=== PATIENT | female | born 1955 | race Caucasian/White ===

== ENCOUNTER → 2021-02-04 08:49 | Outpatient (CLI) | payer MEDICARE, SELFPAY ==
--- NOTE | 2021-02-04 08:55 | BD_ITS ---
STUDY: DUAL ENERGY X-RAY ABSORPTIOMETRY / DXA REASON FOR EXAM: Female, 66 years old. M810. Patient is postmenopausal. TECHNIQUE: Bone Mineral Density (BMD) measurements of lumbar spine and bilateral hips were obtained. COMPARISON: None. FINDINGS: Lumbar Spine (L1-L4): g/cm2 (1.009) / T-score (-0.4) / Z-score (1.5) Findings are suggestive of normal bone density with a low fracture risk. Left Femur Total: g/cm2 (0.928) / T-score (-0.1) / Z-score (1.2) Left Femoral Neck: g/cm2 (0.70) / T-score (-1.3) / Z-score (0.3) Right Femur Total: g/cm2 (0.889) / T-score (-0.4) / Z-score (0.9) Right Femoral Neck: g/cm2 (0.673) / T-score (-1.6) / Z-score (0.0) BD/Dexa Bone Density Study IMPRESSION: The patient is considered osteopenic as outlined below according to World Tomi Organization (WHO) criteria with a moderate fracture risk. Reference Information: The T-score is the number of standard deviations above or below the standard which is normal for young adults at their peak bone mineral density. The World Health Organization (WHO) interprets the T-scores as follows: Above -1 Normal bone density Between -1 and -2.5 Osteopenia Equal to / or below -2.5 Osteoporosis As a practical clinical guideline, osteopenia may be graded as follows: Mild -1 through -1.5 Moderate -1.6 through -2.0 Severe -2.1 through -2.4 The Z-score is the number of standard deviations above or below age-matched controls. A Z-score of less than -1.5 would be considered abnormal. References: 1. NIH Osteoporosis and Related Bone Diseases www osteo.org 2. International Society for Clinical Densitometry www iscd.org 3. National Osteoporosis Foundation www nof.org Electronically Signed: Brad Woods MD at 13:26 EDT , Service support ,
--- NOTE | 2021-02-04 09:21 | EKG12_ITS ---
Test Reason : ROUTINE Blood Pressure : / mmHG Vent. Rate : 076 BPM Atrial Rate : 076 BPM P-R Int : 162 ms QRS Dur : 080 ms QT Int : 370 ms P-R-T Axes : 065 057 071 degrees QTc Int : 416 ms Normal sinus rhythm Low voltage QRS Borderline ECG Confirmed by APOLINAR FIELDS, SARAH ([id number]), image editor MAGDALENA RODRIGUEZ ([id number]) on 02/05/2021 9:10:44 AM Referred By: [facility] Confirmed By:SARAH JIANG MD
== END ==
DX: M81.0 Age-related osteoporosis without current pathological fracture (principal); Z82.49 Family history of ischemic heart disease and other diseases of the circulatory system
CPT/HCPCS: 77080; 93005

== ENCOUNTER → 2021-03-12 12:20 | Outpatient (CLI) | payer MEDICARE, SELFPAY ==
[2021-03-12 12:52] LABS: Absolute Lymphocyte Count 1.89 X10^3/uL (0.83-4.51); Absolute Neutrophil Count 4.5 X10^3/uL (2.0-7.7); Basophil# 0.04 X10^3/uL; Basophil% 0.6 % (0-1); Eosinophil# 0.01 X10^3/uL; Eosinophils% 0.1 % (0-5); Hematocrit 42.8 % (37-47); Hemoglobin 13.8 g/dL (12.0-15.0); Lymphocyte # 1.89 X10^3/ul (0.83-4.51); Lymphocyte % 27.8 % (19-41); Mean Corp Hgb Conc 32.2 g/dL (32-36); Mean Corpuscular Hgb 29.6 pg (27.0-32.0); Mean Corpuscular Volume 91.8 fL (81-99); Mean Platelet Vol. 9.8 fl (6.2-12.0); Monocyte# 0.34 X10^3/uL; NRBC Flagged by Analyzer 0 % (0-5); Neutrophil # 4.45 X10^3/uL (2.7-7.7); Neutrophil % 65.6 % (47-70); Platelet Count 339 K/mm3 (150-450); RBC Distribution Width CV 12.9 % (11.6-14.6); RBC Distribution Width SD 42.6 fl (35.1-43.9); Red Blood Count 4.66 M/mm3 (4.2-5.4); White Blood Count 6.8 K/mm3 (4.4-11.0)
[2021-03-12 13:34] LABS: BNP,B-Type NATRIURETIC PEPTIDE 162.3 pg/mL (0-100)
[2021-03-12 13:43] LABS: ALB/GLOB Ratio 0.9 RATIO (0.9-2.4); AST(SGOT) 14 U/L (15-37); Alanine Aminotransfer ALT/SGPT 15 U/L (13-56); Albumin, Serum 3.6 g/dL (3.2-5.0); Alkaline Phosphatase 111 U/L (45-117); Anion Gap 7 (5-15); BUN 16 mg/dL (7-18); BUN/Creat Ratio 16.2 RATIO (10-20); Calcium,Total 9.5 mg/dL (8.5-10.1); Chloride 107 mmol/L (98-107); Creatinine, Serum 0.99 mg/dL (0.55-1.02); EST Glomerular Filtration Rate 60 mL/min (>60); Est Glom Filt Rate - Afr Amer 72 mL/min (>60); Globulin 4.1 g/dL (2.2-4.2); Glucose 110 mg/dL (74-106); Potassium 4.2 mmol/L (3.5-5.1); Protein, Total 7.7 g/dL (6.4-8.2); Sodium Level 139 mmol/L (136-145); T4 Free Direct 1.03 ng/dL (0.76-1.46); Thyroid Stim Hormone (TSH) 1.72 uIU/mL (0.358-3.74)
[2021-03-15 08:39] LABS: Vitamin D 1,25-Dihydroxy 49.9 pg/mL (19.9-79.3)
== END ==
DX: Z00.01 Encounter for general adult medical examination with abnormal findings (principal); R06.00 Dyspnea, unspecified; R60.0 Localized edema
CPT/HCPCS: 36415; 80053; 82652; 83880; 84439; 84443; 85025

== ENCOUNTER → 2021-04-17 09:44 | Outpatient (CLI) | payer MEDICARE, SELFPAY ==
--- NOTE | 2021-04-17 09:47 | ECHOD_ITS ---
Reason For Study: Palpitations Procedure This was a 2D Doppler, Color Flow transthoracic echocardiogram. The study was technically difficult. Exam performed in department. Left Ventricle Normal LV size. Left ventricular systolic function is normal. The estimated ejection fraction is 65 %. Diastolic function is indeterminate. No regional wall motion abnormalities noted. Right Ventricle Normal RV size. Normal systolic function. Atria Normal left atrium. Normal right atrium. No doppler evidence for ASD. Mitral Valve There is no mitral annular calcification. Mild focal mitral valve calcification of the anterior leaflet. Trivial mitral valve insufficiency. Tricuspid Valve Normal tricuspid valve. Trivial tricuspid valve insufficiency. Right ventricular systolic pressure estimated to be 26 mmHg. Aortic Valve Trisinus/trileaflet aortic valve. Mild focal aortic valve calcification. Pulmonic Valve The pulmonic valve is not well visualized. Trivial pulmonic valve insufficiency. Great Vessels Normal sized aortic root. Pericardium/Pleural No pericardial effusion. MMode/2D Measurements & Calculations LVIDd: 3.4 cm IVSd: 1.3 cm Ao root diam: 3.4 cm LVIDs: 2.0 cm LVPWd: 1.1 cm RVDd: 3.3 cm FS: 43.3 % LAV(MOD-bp): 27.8 ml LVAd ap4: 19.7 cm2 SV(MOD-sp4): 29.4 ml LAV(MOD-bp) Indexed: 14.4 ml/m2 LVLd ap4: 6.9 cm LAV(MOD-sp2): 21.1 ml EDV(MOD-sp4): 45.8 ml LAV(MOD-sp4): 34.9 ml EDV(sp4-el): 47.5 ml LVAs ap4: 10.3 cm2 LVLs ap4: 5.4 cm ESV(MOD-sp4): 16.4 ml ESV(sp4-el): 16.6 ml EF(MOD-sp4): 64.1 % EF(sp4-el): 65.0 % SV(sp4-el): 30.9 ml LA A4 area: 14.3 cm2 LA dimension(2D): 3.9 cm RA A4 area: 9.6 cm2 Doppler Measurements & Calculations MV E max oneil: 60.4 cm/sec Lat Peak E' Oneil: 7.0 cm/sec Med Peak E' Oneil: 4.0 cm/sec MV A max oneil: 83.8 cm/sec E/E' lat: 8.7 E/E' med: 15.1 MV E/A: 0.72 Ao V2 max: 135.2 cm/sec LV V1 max: 102.3 cm/sec PA V2 max: 130.3 cm/sec Ao max P.3 mmHg LV V1 max P.2 mmHg Ao V2 mean: 89.3 cm/sec Ao mean P.7 mmHg Ao V2 VTI: 23.9 cm TR max oneil: 240.2 cm/sec TR max P.1 mmHg ECHO/Echo Complete Interpretation Summary The study was technically difficult. Left ventricular systolic function is normal. The estimated ejection fraction is 65 %. Mild focal mitral valve calcification of the anterior leaflet. Trivial mitral valve insufficiency. Trivial tricuspid valve insufficiency. Mild focal aortic valve calcification. Trivial pulmonic valve insufficiency. Right ventricular systolic pressure estimated to be 26 mmHg. Diastolic function is indeterminate. Ordering Physician: Debbie Batista Referring Physician: [facility] Performed By: Chiquita Aragon, NATI, RVT
== END ==
PROVIDERS: Referring Provider Nurse Practitioner Adult Health; Visit Provider Nurse Practitioner Adult Health
DX: R00.2 Palpitations (principal)
CPT/HCPCS: 93306

== ENCOUNTER 2021-12-23 08:13 | Outpatient (RCR) | payer MEDICARE, SELFPAY ==
--- NOTE | 2022-01-01 11:23 | HP.FCE ---
Comments: Not tested due to pt needing lift chair assessment Kneeling: No Ablility (0% of day) Reaching out: Occasional Ability (1-33% of day) Reaching up: Occasional Ability (1-33% of day) Sitting: Frequent Ability (34-66% of day) Walking: Occasional Ability (1-33% of day) Comments: with use of ad. device Standing: Occasional Ability (1-33% of day) Comments: with external support Duration Sedentary Sedentary Light Light Light Medium Medium Medium Heavy Very Heavy Heavy Occasional (0-33% of day) Frequent (34-66% of day) Constant (67-100% of day) 10 # Negligible Negligible 15 # 8 # Negligible 20 # 10# Negli. 35 # 18 # 7 # 50 # 25 # 10 # 75 # 100 # >100 # 38 # 50 # >50 # 15 # 20 # >20 # Weight:: 88.451 kg Hand Dominance: right Medical History Including Restrictions: pt states she lives with her sister and brother-in law. on water pill. pt states she has had a increase difficulty with walking and getting off the couch and at times she is waiting on people to help her get off the couch. Diagnoses: Irregular heart beat. high blood pressure. 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 Behavioral: pt demo with flat affect but cooperative to her limits ADLS: pt states she lives with her sister and [id number]. Pt states she lives in a two story home (split level) 5 to 6 either going up or down- pt states she does take longer to go up or down steps. pt states she does need help at times going up or down stairs on a bad day. pt states she last 2 months she has been doing sponge baths because she feels it is more difficult to step into her bathtub- pt states she can dress herself. pt states she does do her own laundry and helps her sister with cooking and light cleaning. pt states she has noticed a increase difficulty with lifting her legs or getting up from seated positions- pt states she does have an elevated bed which helps her with getting out of bed. Physical Examination: pt ambulates with rollator slowly with a scissor gait and dragging tips of toes. ROM: pt demo ROM WFL of UE -. pt demo with limited lumbar flexion. pt demo with limited hip flex while standing at 70* Strength: right shoulder flex peak force 9.5# left 9.4#. right shoulder ext peak force 14# left 12#. right elbow ext 9# left 10# flex 8# and left 9#. right hip flex 14# left 12#. right knee ext 10# left 10#. pt demo with a weakness of UB & LB limiting safe functional mobility Right Pen And Pencil Repairer Strength Average: 26.66 Right Pen And Pencil Repairer Strength Percentile: unable to get % as age is above standard mean Left Pen And Pencil Repairer Strength Average: 35.00 Left Pen And Pencil Repairer Strength Percentile: unable to get % as pts age is above standard mean Right Lateral Pinch Average: 4.00 Right Lateral Pinch Percentile: unable to get % as pts age is above standard mean Left Lateral Pinch Average: 4.00 Left Lateral Pinch Percentile: unable to get % as pts age is above standard mean Right Tripod Pinch Average: 2.00 Right Tripod Pinch Percentile: unable to get % as pts age is above standard mean Left Tripod Pinch Average: 4.66 Left Tripod Pinch Percentile: unable to get % for pts age as her age is over standard mean Sensation: denies Fine Motor: pt demo tremor with reach bilateral UE - but denies limitations with buttons, zippers or eating Balance: functional reach 6. <6 inches = High Fall Risk. 7-10 inches = Moderate Fall Risk. >10 inches = Low Fall Risk. pt demo high risk of falls Bending: pt demo limited bending ability due to decreased balance -. pt can bend forward on low occasional ability. Squatting: unable Kneeling: unable Reaching out/up: pt demo the ability to reach out/up 3/3x noted tremors in bilateral UE and 10/10x with slow motion and noted tremor. pt can reach up/out on occasional ability Walking: pt ambulates with rollator with slow scissor gait pattern. pt drags tips of toes with increased distance. pt ambulated 275 feet into clinic- requiring rest breaks throughout- pt increases drag of toe tips with increased distance. Timed Up and Go 38.6 sec. An older adult who takes =12 seconds to complete the TUG is at risk for falling. Standing: pt demo standing for 4 min shifting weight and with external support. pt can stand on occasional ability. Sitting: pt demo the ability to sit for 45 min with no apparent or expressed discomfort. pt can sit on a frequent ability Climbing Stairs: unable Comments: lifting test was not completed due to this assessment needed for lift chair for increase safe functional mobility and not work related or return to work restrictions. pt demo transfers from higher chair at min assist level-. low seated surface as a couch pt requires increased assistance MOD and increase trials from sit- stand -. pt demo flop down in chair indication of her LE weakness. based on the above standardized test pt is high fall risk and demo need of assist with getting up from seated position- pt would benefit from lift chair to increase safe functional transfers and increase her mobility.
--- NOTE | 2022-01-01 11:23 | HP.OTFCE.D ---
FCE D/C Summary - Discharge KHUSHBUSPENCER NDIAYE was seen for a one time visit for an FCE on 12/23/21 and is discharged.
== END 2021-12-23 19:00 | disposition home or self-care (01) ==
LOC: OT 08:13
PROVIDERS: Referring Provider Nurse Practitioner Adult Health; Visit Provider Nurse Practitioner Adult Health
DX: R53.1 Weakness (principal)
CPT/HCPCS: 97750